=== PATIENT | female | born 1995 | race Caucasian/White ===

== ENCOUNTER 2017-02-06 19:47 | Emergency (ER) | payer BC ==
[2017-02-06] MEDS ORDERED: Tetan/Diph/Pertus SYR(Tdap)* 0.5 ML SYR(BOOSTRIX) use SYR IM ONE (22:05)
--- NOTE | 2017-02-06 22:11 | ED ---
Complex/Multi-Sys Presentation - HPI Summary HPI Summary: 21 female presents to ED with complaints of needing a tetanus booster. 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 States animal she was working on was with a probable diagnosis of tetanus. Patient has been immunized prior to vet school but is unaware of the exact date. Denies any known drawn blood. Washed out nail thoroughly. No other complaints or obvious open wounds. No PMHx. Has been immunized and are UTD as far as she knows. - History Of Current Complaint Chief Complaint: EDGeneral Time Seen by Provider: 02/06/17 21:20 Hx Obtained From: Patient Onset/Duration: Sudden Onset Severity Currently: None Aggravating Factor(s): n/a Alleviating Factor(s): n/a - Allergies/Home Medications Allergies/Adverse Reactions: Allergies Allergy/AdvReac Type Severity Reaction Status Date / Time No Known Allergies Allergy Verified 02/06/17 20:22 PMH/Surg Hx/FS Hx/Imm Hx Cardiovascular History: Denies: Hx Hypertension Respiratory History: Denies: Hx Asthma - Surgical History Surgery Procedure, Year, and Place: n/a - Immunization History Immunizations Up to Date: Yes Infectious Disease History: No Infectious Disease History: Denies: Traveled Outside the [place] in Last 30 Days - Family History Known Family History: Positive: None - Social History Alcohol Use: None Substance Use Type: Reports: None Smoking Status (MU): Never Smoked Tobacco Review of Systems Constitutional: Negative Respiratory: Negative Gastrointestinal: Negative Positive: Other - possible exposure tetanus Neurological: Negative All Other Systems Reviewed And Are Negative: Yes Physical Exam Triage Information Reviewed: Yes Vital Signs On Initial Exam: Initial Vitals Temp Pulse Resp BP Pulse Ox 97.7 F 88 16 129/87 98 02/06/17 20:19 02/06/17 20:19 02/06/17 20:19 02/06/17 20:19 02/06/17 20:19 Vital Signs Reviewed: Yes Appearance: Positive: Well-Appearing, No Pain Distress, Well-Nourished Skin: Positive: Warm, Skin Color Reflects Adequate Perfusion, Dry, Other - no open wounds or signs of trauma. no lacerations. left distal thumbnail partially torn, patient states she ripped partially torn nail off after incident. no blood drawn. Negative: Cold, Cyanosis @, Pale, Erythema @ ENT: Positive: Hearing grossly normal Neck: Positive: Supple, Nontender Respiratory/Lung Sounds: Positive: Clear to Auscultation, Breath Sounds Present. Negative: Rales, Rhonchi, Wheezes Cardiovascular: Positive: Normal, RRR, Pulses are Symmetrical in both Upper and Lower Extremities. Negative: Murmur, Rub Musculoskeletal: Positive: Normal, Strength/ROM Intact Neurological: Positive: Normal, Sensory/Motor Intact, Alert, Oriented to Person Place, Time Diagnostics - Vital Signs Vital Signs Temp Pulse Resp BP Pulse Ox 02/06/17 20:19 97.7 F 88 16 129/87 98 - Laboratory Lab Statement: Any lab studies that have been ordered have been reviewed, and results considered in the medical decision making process. Complex Multi-Symp Course/Dx Course Of Treatment: tetanus booster updated. spoke with dr doherty and dr sutton infectious disease to ensure comprehensive care. Dr Sutton stated update tetanus and have follow up with Steve as he is unavailable currently and will not effect her care to wait until then. no further action required. patient was educated and aware of worsening signs and symptoms. keep nail clean and dry, triple antibiotic. follow up. - Diagnoses Provider Diagnoses: Need for tetanus booster - Physician Notifications Discussed Care Of Patient With: Dr Sutton Time Discussed With Above Provider: 22:35 Instructed by Provider To: Have Pt Call For Appt. - tetanus booster and follow up with Steve Discharge - Discharge Plan Condition: Stable Disposition: HOME Patient Education Materials: Tetanus (ED) Referrals: [facility] - Francis DAMON [Primary Care Provider] - Steve GUDINO,Alek Badillo [Medical Doctor] - Additional Instructions: Keep area clean and dry. Apply triple antibiotic. Your injection ar will be sore, apply heating pad, take ibuprofen and massage. Any new or worsening symptoms please seek medical attention immediately.
[2017-02-06 23:14] VITALS: BP 123/84
== END 2017-02-06 23:14 | disposition home or self-care (01) ==
LOC: ED 19:47
DX: Z20.3 Contact with and (suspected) exposure to rabies (principal)
CPT/HCPCS: 90471; 90715; 99282